=== PATIENT | male | born 1980 | race Caucasian/White ===

== ENCOUNTER 2022-08-02 12:33 | Outpatient (NON) | payer MEDICARE, OTHER, SELFPAY ==
[2022-08-02 13:15] LABS: Anion Gap 7 mmol/L (8-16); Blood Urea Nitrogen 14 mg/dL (7-18); Calcium 8.3 mg/dL (8.5-10.1); Carbon Dioxide 27 mmol/L (21-32); Chloride 99 mmol/L (98-108); Estimated Glomerular Filt Rate > 60; Osmolality Calculated 293 mOsm/kg (285-295); Potassium 3.7 mmol/L (3.5-5.1); Sodium 133 mmol/L (136-145)
[2022-08-02 13:19] LABS: Glucose 400 mg/dL (70-99)
== END 2022-08-02 12:34 | disposition home or self-care (01) ==
LOC: CHSLAB 12:49
DX: J44.9 Chronic obstructive pulmonary disease, unspecified (principal); E11.9 Type 2 diabetes mellitus without complications
CPT/HCPCS: 36415; 80048